=== PATIENT | male | born 1960 | race Caucasian/White ===

== ENCOUNTER 2017-10-09 18:51 | Emergency (ER) | payer BC, OTHER ==
[2017-10-09] MEDS ORDERED: cloNIDine HCl 0.1 MG TAB ONE (19:42)
--- NOTE | 2017-10-09 21:41 | EDPHYS ---
Physician Documentation [facility] Name: Arun Chavez Age: 57 yrs Sex: Male : 1960 Arrival Date: 10/09/2017 Time: 18:55 Bed 20 Private MD: Richardson Murphy E ED Physician Shawn Rodriguez HPI: 10/09 21:37 This 57 yrs old Male presents to ER via Wheelchair with complaints of High tw4 Blood Pressure. 21:37 The patient has elevated blood pressure and discovered this at home. Onset: The tw4 symptoms/episode began/occurred yesterday. Associated signs and symptoms: Pertinent positives: dizziness, lightheadedness, Pertinent negatives: chest pain, dyspnea, headache, nausea, visual changes, vomiting, weakness. Severity of symptoms: At its worst the blood pressure was moderate, in the emergency department the blood pressure is unchanged. The patient has experienced a previous episode. Historical: - Allergies: 19:13 Morphine; lk1 - PMHx: 19:13 Hypertension; lk1 - PSHx: 19:13 Appendectomy; right ACL repair; lk1 - Immunization history:: Adult Immunizations up to date. - Social history:: Smoking status: Patient uses tobacco products, chewing tobacco, Patient uses alcohol, on a daily basis. ROS: 21:37 Constitutional: Negative for fever, chills, and weight loss, Cardiovascular: Negative tw4 for chest pain, palpitations, and edema, Respiratory: Negative for shortness of breath, cough, wheezing, and pleuritic chest pain, Abdomen/GI: Negative for abdominal pain, nausea, vomiting, diarrhea, and constipation, Back: Negative for injury and pain, MS/Extremity: Negative for injury and deformity, Skin: Negative for injury, rash, and discoloration. Exam: 21:37 Constitutional: This is a well developed, well nourished patient who is awake, alert, tw4 and in no acute distress. Head/Face: Normocephalic, atraumatic. Chest/axilla: Normal chest wall appearance and motion. Nontender with no deformity. No lesions are appreciated. Cardiovascular: Regular rate and rhythm with a normal S1 and S2. No gallops, murmurs, or rubs. Normal PMI, no JVD. No pulse deficits. Respiratory: Lungs have equal breath sounds bilaterally, clear to auscultation and percussion. No rales, rhonchi or wheezes noted. No increased work of breathing, no retractions or nasal flaring. Abdomen/GI: Soft, non-tender, with normal bowel sounds. No distension or tympany. No guarding or rebound. No evidence of tenderness throughout. Back: No spinal tenderness. No costovertebral tenderness. Full range of motion. MS/ Extremity: Pulses equal, no cyanosis. Neurovascular intact. Full, normal range of motion. Neuro: Awake and alert, GCS 15, oriented to person, place, time, and situation. Cranial nerves II-XII grossly intact. Motor strength 5/5 in all extremities. Sensory grossly intact. Cerebellar exam normal. Normal gait. Vital Signs: 19:14 BP 131 / 99; Pulse 75; Resp 15; Temp 97.6(TE); Pulse Ox 95% ; Weight 99.79 kg (R); lk1 Height 5 ft. 8 in. (172.72 cm) (R); Pain 0/10; 20:06 BP 160 / 85; Pulse 71; Resp 18; Pulse Ox 97% on R/A; Pain 0/10; ak1 20:40 BP 150 / 83; Pulse 65; Resp 16; Pulse Ox 97% on R/A; ak1 21:32 BP 130 / 89; Pulse 65; Resp 16; Temp 98.1; Pulse Ox 97% on R/A; Pain 0/10; ak1 19:14 Body Mass Index 33.45 (99.79 kg, 172.72 cm) lk1 MDM: 19:20 Patient medically screened. tw4 21:37 Differential diagnosis: hypertensive crisis, Malignant HTN. Data reviewed: vital signs, tw4 nurses notes. Data interpreted: principal programmer: not applicable for this patient encounter. Pulse oximetry: Interpretation: normal. Test interpretation: by ED physician or midlevel provider: ECG. Counseling: I had a detailed discussion with the patient and/or guardian regarding: the historical points, exam findings, and any diagnostic results supporting the discharge/admit diagnosis, the presence of at least one elevated blood pressure reading (>120/80) during this emergency department visit. Medication response: clonidine reduced the patient's elevated blood pressure to within acceptable limits. Response to treatment: and as a result, I will discharge patient. 10/09 19:38 Order name: EKG - Nurse/Tech; Complete Time: 20:02 ak1 10/09 19:38 Order name: EKG; Complete Time: 19:38 ak1 Administered Medications: 19:39 CANCELLED (Duplicate Order): cloNIDine 0.1 mg PO once ak1 19:43 Drug: cloNIDine 0.1 mg Route: PO; ak1 21:47 Follow up: Response: No adverse reaction; Blood pressure is lowered ak1 Disposition: 10/09/17 21:40 Discharged to Home. Impression: Hypertension secondary to other renal disorders. - Condition is Stable. - Discharge Instructions: Hypertension. - Medication Reconciliation Form, Thank You Letter, Antibiotic Education, Prescription Opioid Use form. - Follow up: Richardson Murphy MD; When: As needed; Reason: If symptoms return, Recheck today's complaints, Continuance of care, Re-evaluation by your physician. - Problem is new. - Symptoms have improved. Signatures: Mandi Valdez, RN RN ak1 Layla Juan RN RN lk1 Shawn Rodriguez MD MD tw4 Corrections: (The following items were deleted from the chart) 19:39 19:38 cloNIDine 0.1 mg PO once ordered. tw4 ak1 21:57 21:40 10/09/2017 21:40 Discharged to Home. Impression: Hypertension secondary to other ak1 renal disorders. Condition is Stable. Forms are Medication Reconciliation Form, Thank You Letter, Antibiotic Education, Prescription Opioid Use. Follow up: Richardson Murphy; When: As needed; Reason: If symptoms return, Recheck today's complaints, Continuance of care, Re-evaluation by your physician. Problem is new. Symptoms have improved. tw4
--- NOTE | 2017-10-09 21:41 | ER ---
Nurse's Notes [facility] Name: Arun Chavez Age: 57 yrs Sex: Male : 1960 Arrival Date: 10/09/2017 Time: 18:55 Bed 20 Private MD: Richardson Murphy E Diagnosis: Hypertension secondary to other renal disorders Presentation: 10/09 19:12 Presenting complaint: Patient states: "My blood pressure has been up and down since lk1 yesterday. I keep hyperventilating from it. I have an appt with Murphy in the morning, but I can't wait.". Presenting complaint:. Transition of care: patient was not received from another setting of care. Onset of symptoms was October 08, 2017 at 08:00. Risk Assessment: Do you want to hurt yourself or someone else? Patient reports no desire to harm self or others. Initial Sepsis Screen: Does the patient meet any 2 criteria? No. Patient's initial sepsis screen is negative. Does the patient have a suspected source of infection? No. Patient's initial sepsis screen is negative. Care prior to arrival: None. 19:12 Method Of Arrival: Wheelchair lk1 19:12 Acuity: BONNIE 3 lk1 Historical: - Allergies: 19:13 Morphine; lk1 - PMHx: 19:13 Hypertension; lk1 - PSHx: 19:13 Appendectomy; right ACL repair; lk1 - Immunization history:: Adult Immunizations up to date. - Social history:: Smoking status: Patient uses tobacco products, chewing tobacco, Patient uses alcohol, on a daily basis. Screenin:18 Abuse screen: Denies threats or abuse. Denies injuries from another. Nutritional ak1 screening: No deficits noted. Tuberculosis screening: No symptoms or risk factors identified. Fall Risk None identified. Assessment: 19:37 General: Appears in no apparent distress. well developed, well nourished, Behavior is bb calm, cooperative. Pain: Denies pain. Neuro: Level of Consciousness is awake, alert, obeys commands, Oriented to person, place, time, situation, Speech is normal, Facial symmetry appears normal. Cardiovascular: Reports lightheadedness, Heart tones S1 S2 present Capillary refill < 3 seconds Patient's skin is warm and dry. Pulses are all present. Edema is absent. Chest pain is denied. Respiratory: Airway is patent Respiratory effort is even, unlabored, Respiratory pattern is regular, Breath sounds are clear bilaterally. GI: No deficits noted. No signs and/or symptoms were reported involving the gastrointestinal system. Derm: Skin is pink, warm \\T\\ dry. Musculoskeletal: Circulation, motion, and sensation intact. 21:46 Reassessment: Patient appears in no apparent distress at this time. No changes from ak1 previously documented assessment. Patient is alert, oriented x 3, equal unlabored respirations, skin warm/dry/pink. pt will follow up with his PCP at 0930 tomorrow. Vital Signs: 19:14 BP 131 / 99; Pulse 75; Resp 15; Temp 97.6(TE); Pulse Ox 95% ; Weight 99.79 kg (R); lk1 Height 5 ft. 8 in. (172.72 cm) (R); Pain 0/10; 20:06 BP 160 / 85; Pulse 71; Resp 18; Pulse Ox 97% on R/A; Pain 0/10; ak1 20:40 BP 150 / 83; Pulse 65; Resp 16; Pulse Ox 97% on R/A; ak1 21:32 BP 130 / 89; Pulse 65; Resp 16; Temp 98.1; Pulse Ox 97% on R/A; Pain 0/10; ak1 19:14 Body Mass Index 33.45 (99.79 kg, 172.72 cm) lk1 ED Course: 18:55 Patient arrived in ED. mr 18:55 Richardson Murphy MD is Private Physician. mr 19:13 Triage completed. lk1 19:15 Arm band placed on right wrist. lk1 19:18 Mandi Valdez, RN is Primary Nurse. ak1 19:19 Shawn Rodriguez MD is Attending Physician. tw4 19:37 Patient has correct armband on for positive identification. Bed in low position. Call bb light in reach. Side rails up X 1. perforator loader on. Pulse ox on. NIBP on. 21:40 Richardson Murphy MD is Referral Physician. tw4 21:46 No provider procedures requiring assistance completed. Patient did not have IV access ak during this emergency room visit. Administered Medications: 19:39 CANCELLED (Duplicate Order): cloNIDine 0.1 mg PO once ak1 19:43 Drug: cloNIDine 0.1 mg Route: PO; ak1 21:47 Follow up: Response: No adverse reaction; Blood pressure is lowered ak1 Outcome: 21:40 Discharge ordered by . tw4 21:46 Discharged to home ambulatory, with family. ak1 21:46 Condition: stable 21:46 Discharge instructions given to patient, Instructed on discharge instructions, follow up and referral plans. Demonstrated understanding of instructions, follow-up care. 21:57 Patient left the ED. ak1 Signatures: Chapis Carbajal mr Cornelia Scott, RN RN Mandi Rowland RN RN ak1 Layla Juan, RAY RN lk1 Shawn Rodriguez MD MD tw4
--- NOTE | 2017-10-10 06:56 | EKG ---
Test Date: 2017-10-09 Test Time: 19:48:43 Pre Owned Sales Consultant: [place] MEASUREMENT RESULTS: Intervals: Rate: 65 TN: 118 QRSD: 84 QT: 390 QTc: 405 Bladen: P: 17 TN: 118 QRS: 34 T: 11 INTERPRETIVE STATEMENTS: Normal sinus rhythm Normal ECG Compared to ECG 06/22/2002 00:04:00 T-wave abnormality no longer present Electronically Signed On 10-10-17 06:55:31 CDT by Cristhian Hodges
== END 2017-10-09 21:57 | disposition home or self-care (01) ==
LOC: ER 18:51
DX: I15.1 Hypertension secondary to other renal disorders (principal); Z88.5 Allergy status to narcotic agent; Z72.0 Tobacco use
CPT/HCPCS: 93005; 99284